=== PATIENT | female | born 1960 | race Caucasian/White ===

== ENCOUNTER 2022-08-12 18:36 | Inpatient (IN) | payer MEDICARE ==
[~2022-08-12 18:36] MED LIST: Iopamidol-370 76% 500 ML 1 ML ONE
[2022-08-12] MEDS ORDERED: Fentanyl 100 MCG/2 ML VIAL ONE ×2 (18:41→19:04)
[2022-08-12] MEDS ORDERED: NOREPINEPHRINE 8 MG/250 ML-D5W 250 ML ONE (18:58)
[2022-08-12] MEDS ORDERED: Fentanyl CADD 100 ML IV SCH ×2 (19:15→21:45)
[2022-08-12 19:18] LABS: Actual Bicarbonate (HCO3a) 20.3 mEq/L (22-28); Base Excess (BEa) -2.1 mEq/L (-2.0 to +3.0); CO2 Tension 28.8 mmHg (35.0-45.0); Calcium, Ionized (arterial) 1.07 mmol/L (1.12-1.30); Carboxyhemoglobin (COHb) 0.5 gm% (0.0-3.0); O2 Tension (PaO2), arterial 307.2 mmHg (> 80.0); Potassium - ABG Lab 3.25 mmol/L (3.70-5.30); pH, Arterial 7.47 (7.35-7.45)
[2022-08-12 19:31] LABS: Puncture Site RRA
[2022-08-12] MEDS ORDERED: Cefepime 2 GM VIAL ONE (20:00)
[2022-08-12 20:01] LABS: #Basophils 0.1 thou/uL (0.0-0.2); #Eosinphils 0.1 thou/uL (0.0-0.7); #Lymphocytes 2.2 thou/uL (1.20-3.40); #Monocytes 1.5 thou/uL (0.11-0.59); #Neutrophils 11.5 thou/uL (1.40-6.50); %Basophils 0.5 % (0.0-1.0); %Eosinophils 0.7 % (0.0-10.0); %Lymphocytes 14.3 % (21.0-51.0); %Monocytes 9.7 % (0.0-10.0); %Neutrophils 74.9 % (42.0-75.0); Hemoglobin 12.6 g/dL (12.0-16.0); Mean Platelet Volume 9.1 fL (7.4-10.4); Platelet Count 159 10x3/uL (130-400); RBC Distribution Width 13.4 % (11.5-14.5); Red Blood Cell (RBC) Count 4.07 mill/uL (4.20-5.40); White Blood Cell (WBC) Count 15.3 10x3/uL (4.8-10.8)
[2022-08-12] MEDS ORDERED: Acetaminophen 650 MG Suppository ONE (20:15)
[2022-08-12 20:20] LABS: ALT (SGPT) 36 U/L (8-55); AST (SGOT) 122 U/L (5-34); Albumin 3.8 g/dL (3.4-4.8); Alkaline Phosphatase 58 U/L (40-110); Anion Gap 18 mmol/L (10-20); BUN (Urea Nitrogen) 16 mg/dL (9.8-20.1); Bilirubin, Total 0.7 mg/dL (0.2-1.2); Calc. Creatinine Clearance 0 mL/min (70-130); Calcium 9.8 mg/dL (7.8-10.44); Carbon Dioxide 20 mmol/L (23-31); Chloride 106 mmol/L (98-107); Estimated GFR 70; Globulin 3.6 g/dL (2.4-3.5); Glucose 83 mg/dL (80-115); Lipase 14 U/L (8-78); Potassium 4.3 mmol/L (3.5-5.1); Protein, Total 7.4 g/dL (5.8-8.1); Sodium 140 mmol/L (136-145)
[2022-08-12 20:20] LABS: Bacteria/HPF 4+ HPF (None Seen); Bilirubin Negative (Negative); Blood, Urine 2+ (Negative); Clarity Turbid (Clear); Glucose, Urine (Dipstick) Normal (Negative); Ketone, Urine 40 mg/dL (Negative); Leukocyte 500 Leu/uL (Negative); Nitrite 1+ (Negative); Protein, Urine (Dipstick) 30 mg/dL (Neg-Trace); Specific Gravity, Urine 1.017 (1.002-1.036); Squamous Epithelial 0-3 HPF (0-3); Urobilinogen Normal mg/dL (Less than 2); WBC/HPF Greater than 50 HPF (0-3); pH, Urine 5.5 (5.0-9.0)
[2022-08-12 20:23] LABS: Acetaminophen Less than 10.0 mcg/mL (10.0-30.0); Alcohol Less than 10 mg/dL (Less than 10); Salicylate Less than 8.0 mg/dL (15.0-30.0)
[2022-08-12 20:26] LABS: Amphetamine Not Detected (NotDetected); Barbiturates Screen Not Detected (NotDetected); Benzodiazepine Screen Not Detected (NotDetected); Cocaine Metabolite Screen Not Detected (NotDetected); Methadone Not Detected (NotDetected); Methamphetamine Not Detected (NotDetected); Opiate Screen Detected (NotDetected); Oxycodone Screen Not Detected (NotDetected); Phencyclidine (PCP) Not Detected (NotDetected); THC/Cannabinoid Screen Not Detected (NotDetected); Tricyclic Screen Not Detected (NotDetected)
[2022-08-12] MEDS ORDERED: Vancomycin 1 GM/200 ML (FROZEN) BAG ONE (20:34)
[2022-08-12] MEDS ORDERED: Ondansetron ODT 4 MG TAB PO PRN (21:26)
[2022-08-12] MEDS ORDERED: Ventilator Sedation Protocol 1 EACH FS SCH (21:26)
[2022-08-12] MEDS ORDERED: Ondansetron PF 4 MG/2 ML Vial IVP PRN (21:26)
[2022-08-12] MEDS ORDERED: Acetaminophen 650 MG Suppository PR PRN (21:26)
[2022-08-12] MEDS ORDERED: DISCONTINUE PREVIOUS NARCOTIC PAIN MEDICATIONS AND BENZODIAZEPINES FS SCH (21:45)
[2022-08-12] MEDS ORDERED: Morphine 4 MG/ML VIAL SLOW IVP PRN (21:45)
[2022-08-12] MEDS ORDERED: Lorazepam 2 MG/ML VIAL SLOW IVP PRN (21:45)
[2022-08-12] MEDS ORDERED: Propofol 1,000 MG/100 ML VIAL IV PRN (21:45)
[2022-08-12] MEDS ORDERED: Fentanyl BOLUS 250 ML IVPB PRN (21:45)
[2022-08-12] MEDS ORDERED: Propofol BOLUS 1,000 MG/100 ML VIAL IV PRN (21:45)
[2022-08-12] MEDS ORDERED: Morphine 2 MG/ML VIAL SLOW IVP PRN (22:00)
[2022-08-12 22:03] LABS: Actual Bicarbonate (HCO3a) 23.5 mEq/L (22-28); Base Excess (BEa) -3.3 mEq/L (-2.0 to +3.0); CO2 Tension 49.3 mmHg (35.0-45.0); Calcium, Ionized (arterial) 1.11 mmol/L (1.12-1.30); Carboxyhemoglobin (COHb) 0.1 gm% (0.0-3.0); Hemoglobin (Hb) 13.9 g/dL (12.0-16.0); O2 Tension (PaO2), arterial 338.9 mmHg (> 80.0); Potassium - ABG Lab 3.89 mmol/L (3.70-5.30)
[2022-08-12 22:10] LABS: ALV-art Gradient 312.475 mmHg (0-20); Puncture Site LRA
[2022-08-12] MEDS ORDERED: Ipratropium/Albuterol 3 ML NEB NEB PRN (22:42)
[2022-08-12] MEDS ORDERED: Electrolyte Replacement Protocol 1 EACH FS PRN (23:14)
[2022-08-12] MEDS ORDERED: NOREPINEPHRINE 8 MG/250 ML-D5W 250 ML IVPB SCH (23:15)
[2022-08-12 23:22] LABS: CK (CPK) 3787 U/L (29-168); Iron 21 ug/dL (50-170); Magnesium 1.7 mg/dL (1.6-2.6); Phosphorus 2.7 mg/dL (2.3-4.7)
[2022-08-12] MEDS ORDERED: Magnesium 2 GM/50 ML(in water) 2 GM in Premix Bag 1 BAG IVPB SCH (23:30)
[2022-08-12] MEDS ORDERED: Mineral Oil ENEMA PR SCH (23:30)
[2022-08-12] MEDS ORDERED: HumaLOG 300 UNITS/3 ML VIAL SC PRN ×2 (23:37)
[2022-08-12] MEDS ORDERED: Dextrose 50% Abboject 50 ML SYRINGE SLOW IVP PRN (23:37)
[2022-08-12] MEDS ORDERED: Dextrose 5% in Water 1,000 ML IV PRN (23:37)
[2022-08-12 23:41] LABS: Ferritin 348.55 ng/mL (10-291)
[2022-08-12 23:52] LABS: Thyroid Stimulating Hormone 0.4808 uIU/mL (0.35-4.94)
[2022-08-13] MEDS: Hydrocortisone Sod Succ/PF 100 mg/2 ml Vial IVP SCH ×2 (00:20→10:09)
[2022-08-13] MEDS: Sodium Chloride 0.9% 1,000 ML IV SCH ×3 (00:21→18:29)
[2022-08-13] MEDS ORDERED: Cefepime 2 GM in Sodium Chloride 0.9% 100 ML IVPB SCH (08:00)
[2022-08-13 08:06] LABS: Actual Bicarbonate (HCO3a) 19.8 mEq/L (22-28); Base Excess (BEa) -4.1 mEq/L (-2.0 to +3.0); CO2 Tension 33.2 mmHg (35.0-45.0); Calcium, Ionized (arterial) 1.16 mmol/L (1.12-1.30); Carboxyhemoglobin (COHb) 0.8 gm% (0.0-3.0); Hemoglobin (Hb) 13.8 g/dL (12.0-16.0); O2 Tension (PaO2), arterial 69.1 mmHg (> 80.0); Potassium - ABG Lab 3.44 mmol/L (3.70-5.30); pH, Arterial 7.39 (7.35-7.45)
[2022-08-13 08:12] LABS: Puncture Site LRA
[2022-08-13] MEDS ORDERED: Vancomycin HCl 1.5 GM in Sodium Chloride 0.9% 250 ML 300 ML IVPB SCH (09:00)
[2022-08-13 09:34] LABS: Lactic Acid 3.5 mmol/L (0.5-2.2)
[2022-08-13 09:51] LABS: Anion Gap 20 mmol/L (10-20); BUN (Urea Nitrogen) 10 mg/dL (9.8-20.1); Calc. Creatinine Clearance 67 mL/min (70-130); Carbon Dioxide 19 mmol/L (23-31); Chloride 107 mmol/L (98-107); Sodium 142 mmol/L (136-145)
[2022-08-13 09:52] LABS: ALT (SGPT) 37 U/L (8-55); AST (SGOT) 121 U/L (5-34); Albumin 3.3 g/dL (3.4-4.8); Alkaline Phosphatase 49 U/L (40-110); Bilirubin, Total 0.9 mg/dL (0.2-1.2); CK (CPK) 3293 U/L (29-168); Calcium 9.2 mg/dL (7.8-10.44); Estimated GFR 88; Globulin 3.4 g/dL (2.4-3.5); Glucose 101 mg/dL (80-115); Protein, Total 6.7 g/dL (5.8-8.1)
[2022-08-13] MEDS: Pantoprazole 40 MG VIAL IVP SCH (10:04)
[2022-08-13] MEDS: Polyethylene Glycol 3350 17 GM Packet PER TUBE SCH (10:07)
[2022-08-13] MEDS: Senokot S 8.6-50 MG TAB PO SCH ×2 (10:07→19:59)
[2022-08-13 10:11] LABS: Hemoglobin 14.7 g/dL (12.0-16.0); Mean Corpuscular HGB CONC 32.8 g/dL (32.0-36.0); Mean Corpuscular Hemoglobin 32.4 pg (27.0-31.0); Mean Corpuscular Volume 98.8 fl (78.0-98.0); Mean Platelet Volume 9.7 fL (7.4-10.4); Platelet Count 158 10x3/uL (130-400); RBC Distribution Width 13.5 % (11.5-14.5); Red Blood Cell (RBC) Count 4.53 mill/uL (4.20-5.40); White Blood Cell (WBC) Count 20.5 10x3/uL (4.8-10.8)
[2022-08-13] MEDS: Acetaminophen 325 MG TAB PO PRN (10:23)
[2022-08-13 10:39] LABS: Band 14 % (5-11); Lymphocytes 14 % (21-51); MDiff Complete? YES; Monocytes 6 % (0-10); Neutrophil 63 % (42-75); RBC Morphology Normal; Reactive Lymphocytes 3 % (0-10)
[2022-08-13] MEDS: VANCOMYCIN 1.25 GM/250 ML BAG 1.25 GM in Premix Bag 1 BAG IVPB SCH ×2 (16:55→19:08)
[2022-08-13] MEDS: Cefepime 1 GM in Sodium Chloride 0.9% 100 ML IVPB SCH (19:42)
[2022-08-14] MEDS: Acetaminophen 325 MG TAB PO PRN (02:39)
[2022-08-14] MEDS: Sodium Chloride 0.9% 1,000 ML IV SCH ×4 (03:09→11:56)
[2022-08-14] MEDS: Levothyroxine Sodium 50 MCG TAB PO SCH (05:10)
[2022-08-14] MEDS: Mometasone 100 MCG/PUFF (1 INHALER) INH SCH ×2 (07:53→19:18)
[2022-08-14] MEDS: Ipratropium/Albuterol 3 ML NEB NEB SCH ×4 (07:54→23:42)
[2022-08-14] MEDS: Pregabalin 75 MG CAP PO SCH ×3 (09:59→20:16)
[2022-08-14] MEDS: Polyethylene Glycol 3350 17 GM Packet PER TUBE SCH (09:59)
[2022-08-14] MEDS: Senokot S 8.6-50 MG TAB PO SCH ×2 (09:59→20:12)
[2022-08-14] MEDS ORDERED: DC Sedation Protocol FS SCH (10:29)
[2022-08-14] MEDS: Cefepime 1 GM in Sodium Chloride 0.9% 100 ML IVPB SCH ×2 (11:53→20:12)
[2022-08-14] MEDS: Pantoprazole 40 MG VIAL IVP SCH (11:54)
[2022-08-14 16:11] LABS: Vancomycin, Trough 6.8 ug/mL
[2022-08-14] MEDS: VANCOMYCIN 1.25 GM/250 ML BAG 1.25 GM in Premix Bag 1 BAG IVPB SCH (16:44)
[2022-08-14] MEDS: Vancomycin HCl 750 MG in Sodium Chloride 0.9% 250 ML 250 ML IVPB SCH (17:03)
[2022-08-14 22:16] LABS: #Eosinphils 0.3 thou/uL (0.0-0.7); #Lymphocytes 0.9 thou/uL (1.20-3.40); #Monocytes 1.1 thou/uL (0.11-0.59); %Basophils 0.2 % (0.0-1.0); %Eosinophils 2.1 % (0.0-10.0); %Lymphocytes 7.1 % (21.0-51.0); %Monocytes 8.8 % (0.0-10.0); %Neutrophils 81.9 % (42.0-75.0); Hemoglobin 12.5 g/dL (12.0-16.0); Mean Corpuscular Hemoglobin 31.9 pg (27.0-31.0); Mean Corpuscular Volume 99.8 fl (78.0-98.0); Mean Platelet Volume 9.5 fL (7.4-10.4); Platelet Count 142 10x3/uL (130-400); RBC Distribution Width 13.2 % (11.5-14.5); Red Blood Cell (RBC) Count 3.91 mill/uL (4.20-5.40); White Blood Cell (WBC) Count 12.2 10x3/uL (4.8-10.8)
[2022-08-14 22:43] LABS: Lactic Acid 2.6 mmol/L (0.5-2.2)
[2022-08-14] MEDS ORDERED: Ipratropium/Albuterol 3 ML NEB NEB SCH (23:45)
[2022-08-14 23:55] LABS: Chloride 105 mmol/L (98-107); Sodium 141 mmol/L (136-145)
[2022-08-14 23:56] LABS: Calcium 9.1 mg/dL (7.8-10.44); Glucose 84 mg/dL (80-115)
[2022-08-14 23:57] LABS: Anion Gap 17 mmol/L (10-20); Carbon Dioxide 22 mmol/L (23-31)
[2022-08-14 23:59] LABS: Calc. Creatinine Clearance 86 mL/min (70-130); Estimated GFR 100
[2022-08-15] LABS: BUN (Urea Nitrogen) 6 mg/dL (9.8-20.1)
[2022-08-15 00:01] LABS: Magnesium 1.7 mg/dL (1.6-2.6)
[2022-08-15 00:04] LABS: Potassium 2.6 mmol/L (3.5-5.1)
[2022-08-15] MEDS ORDERED: Electrolyte Replacement Protocol 1 EACH FS SCH (00:15)
[2022-08-15] MEDS ORDERED: Magnesium 2 GM/50 ML(in water) 2 GM in Premix Bag 1 BAG IVPB SCH (00:30)
[2022-08-15] MEDS: Potassium Chloride 40 MEQ in Sodium Chloride 0.9% 250 ML 250 ML IVPB SCH ×2 (00:35→04:49)
[2022-08-15] MEDS ORDERED: Sodium Chloride 0.9% 500 ML IV SCH (04:30)
[2022-08-15] MEDS: Sodium Chloride 0.9% 1,000 ML IV SCH (05:32)
[2022-08-15] MEDS: Levothyroxine Sodium 50 MCG TAB PO SCH (05:34)
[2022-08-15] MEDS: Vancomycin HCl 750 MG in Sodium Chloride 0.9% 250 ML 250 ML IVPB SCH ×2 (05:34→18:17)
[2022-08-15 06:31] LABS: Hemoglobin 11.9 g/dL (12.0-16.0); Mean Corpuscular Hemoglobin 32.5 pg (27.0-31.0); Mean Corpuscular Volume 98.3 fl (78.0-98.0); Mean Platelet Volume 9.3 fL (7.4-10.4); Platelet Count 193 10x3/uL (130-400); Red Blood Cell (RBC) Count 3.65 mill/uL (4.20-5.40); White Blood Cell (WBC) Count 11.3 10x3/uL (4.8-10.8)
[2022-08-15 06:32] LABS: Band 5 % (5-11); Eosinophils 1 % (0-10); Hypochromia SLIGHT = 6-15 cells (100X) (0-5/hpf); Lymphocytes 6 % (21-51); MDiff Complete? YES; Monocytes 14 % (0-10); Neutrophil 74 % (42-75); Platelet Morphology Comment Appears Adequate
[2022-08-15 07:07] LABS: Anion Gap 17 mmol/L (10-20); Carbon Dioxide 19 mmol/L (23-31); Chloride 106 mmol/L (98-107); Sodium 139 mmol/L (136-145)
[2022-08-15 07:08] LABS: Calcium 8.9 mg/dL (7.6-10.4); Glucose 70 mg/dL (80-115)
[2022-08-15 07:10] LABS: BUN (Urea Nitrogen) 5 mg/dL (9.8-20.1); Calc. Creatinine Clearance 94 mL/min (70-130); Estimated GFR 102
[2022-08-15] MEDS: Polyethylene Glycol 3350 17 GM Packet PER TUBE SCH (08:14)
[2022-08-15] MEDS: Senokot S 8.6-50 MG TAB PO SCH ×2 (08:15→21:11)
[2022-08-15] MEDS: Pregabalin 75 MG CAP PO SCH ×3 (08:16→21:11)
[2022-08-15] MEDS: Cefepime 1 GM in Sodium Chloride 0.9% 100 ML IVPB SCH (08:17)
[2022-08-15] MEDS: Mometasone 100 MCG/PUFF (1 INHALER) INH SCH ×2 (08:26→19:13)
[2022-08-15] MEDS: Ipratropium/Albuterol 3 ML NEB NEB SCH ×4 (08:27→23:17)
[2022-08-15] MEDS ORDERED: Morphine IR Tab 15 MG TAB PO SCH (09:00)
[2022-08-15] MEDS ORDERED: Non-Formulary Item 1 EACH (Prednisone [Prednisone] 10 MG Tablet) PO SCH (09:00)
[2022-08-15] MEDS ORDERED: DULOXETINE HCL 30 MG PO SCH (09:00)
[2022-08-15] MEDS: Morphine IR Tab 15 MG TAB PO SCH ×3 (09:15→21:10)
[2022-08-15] MEDS: DULoxetine 30 MG CAP PO SCH ×3 (09:18→21:11)
[2022-08-15] MEDS: Propranolol 10 MG TAB PO SCH ×2 (09:18→21:10)
[2022-08-15] MEDS: predniSONE 5 MG TAB PO SCH (09:55)
[2022-08-15 15:38] LABS: Anion Gap 16 mmol/L (10-20); BUN (Urea Nitrogen) 8 mg/dL (9.8-20.1); Calc. Creatinine Clearance 95 mL/min (70-130); Calcium 9.2 mg/dL (7.8-10.44); Carbon Dioxide 23 mmol/L (23-31); Chloride 104 mmol/L (98-107); Estimated GFR 103; Glucose 91 mg/dL (80-115); Potassium 3.5 mmol/L (3.5-5.1); Sodium 139 mmol/L (136-145)
[2022-08-15] MEDS ORDERED: Non-Formulary Item 1 EACH (Lovastatin [Lovastatin] 10 MG Tablet) PO SCH (17:00)
[2022-08-15] MEDS: Simvastatin 10 MG TAB PO SCH (18:18)
[2022-08-15] MEDS: Cefepime 2 GM in Sodium Chloride 0.9% 100 ML IVPB SCH (21:10)
[2022-08-15] MEDS ORDERED: Potassium Chloride 20 MEQ TAB PO SCH (21:45)
[2022-08-16] MEDS: Sodium Chloride 0.9% 1,000 ML IV SCH ×2 (04:08→20:07)
[2022-08-16 04:41] LABS: Vancomycin, Trough 12.7 ug/mL
[2022-08-16] MEDS ORDERED: Vancomycin 1 GM in Premix Bag 1 BAG IVPB SCH (05:00)
[2022-08-16] MEDS: Levothyroxine Sodium 50 MCG TAB PO SCH (05:47)
[2022-08-16] MEDS: Vancomycin HCl 750 MG in Sodium Chloride 0.9% 250 ML 250 ML IVPB SCH (05:52)
[2022-08-16] MEDS: Ipratropium/Albuterol 3 ML NEB NEB SCH ×3 (07:06→19:13)
[2022-08-16] MEDS: Mometasone 100 MCG/PUFF (1 INHALER) INH SCH ×2 (07:06→19:14)
[2022-08-16 08:13] LABS: #Eosinphils 0.3 thou/uL (0.0-0.7); #Lymphocytes 1.3 thou/uL (1.20-3.40); #Neutrophils 6.5 thou/uL (1.40-6.50); %Basophils 0.4 % (0.0-1.0); %Eosinophils 3.7 % (0.0-10.0); %Lymphocytes 14.7 % (21.0-51.0); %Monocytes 10.7 % (0.0-10.0); %Neutrophils 70.5 % (42.0-75.0); Hemoglobin 11.7 g/dL (12.0-16.0); Mean Corpuscular HGB CONC 32.4 g/dL (32.0-36.0); Mean Corpuscular Hemoglobin 32.1 pg (27.0-31.0); Mean Corpuscular Volume 99.2 fl (78.0-98.0); Mean Platelet Volume 9.4 fL (7.4-10.4); Platelet Count 246 10x3/uL (130-400); RBC Distribution Width 12.9 % (11.5-14.5); Red Blood Cell (RBC) Count 3.65 mill/uL (4.20-5.40); White Blood Cell (WBC) Count 9.2 10x3/uL (4.8-10.8)
[2022-08-16 08:39] LABS: Chloride 105 mmol/L (98-107); Potassium 3.7 mmol/L (3.5-5.1); Sodium 140 mmol/L (136-145)
[2022-08-16 08:40] LABS: Calcium 8.9 mg/dL (7.8-10.44); Glucose 79 mg/dL (80-115)
[2022-08-16 08:42] LABS: Anion Gap 16 mmol/L (10-20); Bilirubin, Total 0.5 mg/dL (0.2-1.2); Carbon Dioxide 23 mmol/L (23-31)
[2022-08-16 08:43] LABS: Alkaline Phosphatase 56 U/L (40-110); Calc. Creatinine Clearance 89 mL/min (70-130); Estimated GFR 102
[2022-08-16 08:44] LABS: BUN (Urea Nitrogen) 12 mg/dL (9.8-20.1)
[2022-08-16 08:45] LABS: AST (SGOT) 96 U/L (5-34)
[2022-08-16 08:46] LABS: ALT (SGPT) 53 U/L (8-55)
[2022-08-16] MEDS: DULoxetine 30 MG CAP PO SCH ×3 (09:34→19:58)
[2022-08-16] MEDS: Cefepime 2 GM in Sodium Chloride 0.9% 100 ML IVPB SCH (09:34)
[2022-08-16] MEDS: Morphine IR Tab 15 MG TAB PO SCH ×3 (09:35→19:57)
[2022-08-16] MEDS: Pregabalin 75 MG CAP PO SCH ×3 (09:36→19:58)
[2022-08-16] MEDS: predniSONE 5 MG TAB PO SCH (09:36)
[2022-08-16] MEDS: Polyethylene Glycol 3350 17 GM Packet PER TUBE SCH (09:37)
[2022-08-16] MEDS: Propranolol 10 MG TAB PO SCH ×2 (09:37→19:58)
[2022-08-16] MEDS: Senokot S 8.6-50 MG TAB PO SCH ×2 (09:38→21:48)
[2022-08-16] MEDS: Simvastatin 10 MG TAB PO SCH (17:25)
[2022-08-16] MEDS ORDERED: ALPRAZolam 0.25 MG TAB PO PRN (18:55)
[2022-08-16] MEDS: QUEtiapine 25 MG TAB PO SCH (19:57)
[2022-08-16] MEDS: Sulfameth/Trimethoprim DS 800-160mg TAB PO SCH (19:57)
[2022-08-17] MEDS: Ipratropium/Albuterol 3 ML NEB NEB SCH ×4 (00:24→18:56)
[2022-08-17 05:14] LABS: #Eosinphils 0.3 thou/uL (0.0-0.7); #Lymphocytes 1.4 thou/uL (1.20-3.40); #Monocytes 0.8 thou/uL (0.11-0.59); #Neutrophils 4.8 thou/uL (1.40-6.50); %Basophils 0.5 % (0.0-1.0); %Eosinophils 4.4 % (0.0-10.0); %Lymphocytes 19.1 % (21.0-51.0); %Monocytes 11.3 % (0.0-10.0); %Neutrophils 64.7 % (42.0-75.0); Hemoglobin 10.3 g/dL (12.0-16.0); Mean Corpuscular HGB CONC 32.3 g/dL (32.0-36.0); Mean Corpuscular Hemoglobin 31.8 pg (27.0-31.0); Mean Corpuscular Volume 98.6 fl (78.0-98.0); Mean Platelet Volume 8.9 fL (7.4-10.4); Platelet Count 261 10x3/uL (130-400); RBC Distribution Width 12.9 % (11.5-14.5); Red Blood Cell (RBC) Count 3.22 mill/uL (4.20-5.40); White Blood Cell (WBC) Count 7.4 10x3/uL (4.8-10.8)
[2022-08-17 05:35] LABS: ALT (SGPT) 46 U/L (8-55); AST (SGOT) 72 U/L (5-34); Albumin 2.9 g/dL (3.4-4.8); Alkaline Phosphatase 48 U/L (40-110); Anion Gap 16 mmol/L (10-20); BUN (Urea Nitrogen) 13 mg/dL (9.8-20.1); Bilirubin, Total 0.4 mg/dL (0.2-1.2); Calc. Creatinine Clearance 76 mL/min (70-130); Calcium 8.7 mg/dL (7.8-10.44); Carbon Dioxide 27 mmol/L (23-31); Chloride 102 mmol/L (98-107); Estimated GFR 98; Globulin 2.6 g/dL (2.4-3.5); Glucose 72 mg/dL (80-115); Potassium 3.1 mmol/L (3.5-5.1); Protein, Total 5.5 g/dL (5.8-8.1); Sodium 142 mmol/L (136-145)
[2022-08-17] MEDS: Levothyroxine Sodium 50 MCG TAB PO SCH (05:43)
[2022-08-17] MEDS: Mometasone 100 MCG/PUFF (1 INHALER) INH SCH ×2 (07:26→18:58)
[2022-08-17] MEDS: Potassium Chloride 20 MEQ TAB PO SCH ×2 (09:30→14:33)
[2022-08-17] MEDS: Morphine IR Tab 15 MG TAB PO SCH ×3 (09:31→20:49)
[2022-08-17] MEDS: DULoxetine 30 MG CAP PO SCH ×3 (09:31→20:50)
[2022-08-17] MEDS: Propranolol 10 MG TAB PO SCH ×2 (09:32→20:50)
[2022-08-17] MEDS: Pregabalin 75 MG CAP PO SCH ×3 (09:32→20:48)
[2022-08-17] MEDS: predniSONE 5 MG TAB PO SCH (09:32)
[2022-08-17] MEDS: Polyethylene Glycol 3350 17 GM Packet PER TUBE SCH (09:33)
[2022-08-17] MEDS: Sulfameth/Trimethoprim DS 800-160mg TAB PO SCH ×2 (09:33→20:50)
[2022-08-17] MEDS: Senokot S 8.6-50 MG TAB PO SCH ×2 (09:40→20:49)
[2022-08-17] MEDS: Sodium Chloride 0.9% 1,000 ML IV SCH (14:34)
[2022-08-17] MEDS: Simvastatin 10 MG TAB PO SCH (17:22)
[2022-08-17 17:27] VITALS: BMI 23.8
[2022-08-17] MEDS: QUEtiapine 25 MG TAB PO SCH (20:50)
[2022-08-17 22:48] LABS: Potassium 4.4 mmol/L (3.5-5.1)
[2022-08-18] MEDS: Ipratropium/Albuterol 3 ML NEB NEB SCH ×4 (00:07→18:59)
[2022-08-18] MEDS: Potassium Chloride 20 MEQ TAB PO SCH (01:25)
[2022-08-18] MEDS: Levothyroxine Sodium 50 MCG TAB PO SCH (06:24)
[2022-08-18] MEDS: Mometasone 100 MCG/PUFF (1 INHALER) INH SCH ×2 (07:05→19:00)
[2022-08-18] MEDS: Morphine IR Tab 15 MG TAB PO SCH ×3 (09:04→20:17)
[2022-08-18] MEDS: Propranolol 10 MG TAB PO SCH ×2 (09:05→20:17)
[2022-08-18] MEDS: Senokot S 8.6-50 MG TAB PO SCH ×2 (09:05→20:17)
[2022-08-18] MEDS: Pregabalin 75 MG CAP PO SCH ×3 (09:05→20:17)
[2022-08-18] MEDS: DULoxetine 30 MG CAP PO SCH ×3 (09:06→20:17)
[2022-08-18] MEDS: Sulfameth/Trimethoprim DS 800-160mg TAB PO SCH ×2 (09:06→20:17)
[2022-08-18] MEDS: predniSONE 5 MG TAB PO SCH (09:06)
[2022-08-18] MEDS: Polyethylene Glycol 3350 17 GM Packet PER TUBE SCH (09:06)
[2022-08-18] MEDS: Simvastatin 10 MG TAB PO SCH (16:31)
[2022-08-18] MEDS: QUEtiapine 25 MG TAB PO SCH (20:17)
[2022-08-19] MEDS: Ipratropium/Albuterol 3 ML NEB NEB SCH ×3 (00:27→17:08)
[2022-08-19] MEDS: Levothyroxine Sodium 50 MCG TAB PO SCH (05:21)
[2022-08-19] MEDS: Mometasone 100 MCG/PUFF (1 INHALER) INH SCH (07:20)
[2022-08-19] MEDS: Sulfameth/Trimethoprim DS 800-160mg TAB PO SCH (10:27)
[2022-08-19] MEDS: Propranolol 10 MG TAB PO SCH (10:28)
[2022-08-19] MEDS: Senokot S 8.6-50 MG TAB PO SCH (10:29)
[2022-08-19] MEDS: predniSONE 5 MG TAB PO SCH (10:30)
[2022-08-19] MEDS: Morphine IR Tab 15 MG TAB PO SCH ×2 (10:31→17:07)
[2022-08-19] MEDS: Pregabalin 75 MG CAP PO SCH ×2 (10:35→17:08)
[2022-08-19] MEDS: DULoxetine 30 MG CAP PO SCH ×2 (10:36→17:08)
[2022-08-19] MEDS: Polyethylene Glycol 3350 17 GM Packet PER TUBE SCH (10:40)
[2022-08-19 17:03] VITALS: BP 113/70; TEMP 98.5
== END 2022-08-19 15:30 | disposition home health service (06) | DRG 871 ==
LOC: ERS 18:36 → CCU 18:49 → MSONC 08-14 12:49 → 2NO 08-15 14:32
PROVIDERS: ADMIT Student in an Organized Health Care Education/Training Program; ATTEND Internal Medicine
PROC: 3E03329 Introduction of Other Anti-infective into Peripheral Vein, Percutaneous Approach (ICD-10-PCS; principal; 2022-08-12)
PROC: 5A1935Z Respiratory Ventilation, Less than 24 Consecutive Hours (ICD-10-PCS; 2022-08-12)
PROC: 4A133R1 Monitoring of Arterial Saturation, Peripheral, Percutaneous Approach (ICD-10-PCS; 2022-08-12)
PROC: 3E033XZ Introduction of Vasopressor into Peripheral Vein, Percutaneous Approach (ICD-10-PCS; 2022-08-12)
DX: A41.02 Sepsis due to Methicillin resistant Staphylococcus aureus (principal); G93.41 Metabolic encephalopathy; J96.01 Acute respiratory failure with hypoxia; J18.9 Pneumonia, unspecified organism; N30.00 Acute cystitis without hematuria; J44.1 Chronic obstructive pulmonary disease with (acute) exacerbation; R65.20 Severe sepsis without septic shock; J44.0 Chronic obstructive pulmonary disease with (acute) lower respiratory infection; Z20.822 Contact with and (suspected) exposure to COVID-19; M79.7 Fibromyalgia; M35.3 Polymyalgia rheumatica; M81.0 Age-related osteoporosis without current pathological fracture; E03.9 Hypothyroidism, unspecified; E78.5 Hyperlipidemia, unspecified; J44.9 Chronic obstructive pulmonary disease, unspecified; I10 Essential (primary) hypertension; K52.89 Other specified noninfective gastroenteritis and colitis; K21.9 Gastro-esophageal reflux disease without esophagitis; Z88.0 Allergy status to penicillin; Z79.890 Hormone replacement therapy; Z79.51 Long term (current) use of inhaled steroids; Z79.899 Other long term (current) drug therapy; Z78.1 Physical restraint status
CPT/HCPCS: 36415; 36416; 36600; 51702; 70450; 71045; 74177; 80048; 80053; 80202; 80306; 80307; 81003; 81015; 82140; 82533; 82550; 82728; 82805; 83540; 83605; 83690; 83735; 83880; 84100; 84443; 84484; 85025; 87040; 87077; 87086; 87186; 93005; 93010; 93306; 94002; 94003; 94640; 96361; 96365; 96366; 96367; 96375; C9113; J0692; J1650; J1720; J3010; J3370; J3370-JW; J3475; J3480; J3490; J7030; J7050; J7512; J7620; Q9967